=== PATIENT | female | born 1975 | race Caucasian/White ===

== ENCOUNTER 2017-05-07 02:25 | Emergency (ER) | payer BC ==
[~2017-05-07] VITALS: Ht 157.5 cm; Wt 66.0 kg
[~2017-05-07 02:25] MED LIST: ALPR0.5T PO; AUG875 PO; AZIT250T94 PO; BENZ100C70 PO; D-ME118S6 PO
[2017-05-07 02:30] VITALS: Ht 157.5 cm; Wt 66.0 kg
[2017-05-07] MEDS ORDERED: ALBUTEROL 0.083% (NEB) 2.5 MG/3 ML AMP NEB STA (03:15)
[2017-05-07] MEDS ORDERED: IPRATROPIUM (NEB) 0.5 MG/2.5 ML AMP NEB STA (03:15)
--- NOTE | 2017-05-07 03:43 | ERD ---
ER Documentation Chief Complaint Date/Time DATE: 05/07/17 TIME: 03:41 Chief Complaint productive cough X4 days, sore throat HPI 41-year-old female presents here in emergency department for complaints of cough with whitish phlegm and wheezing for 4 days. Patient has been having throat discomfort from coughing a lot, blood tinged sputum at times. Patient does not have any fever or chills. Patient is complaining of throat discomfort burning pain 4/10 scale, is coughing. Patient took [id number] medication for cough with only mild relief. ROS All systems reviewed and are negative except as per history of present illness. Medications Home Meds Active Scripts Alprazolam* (Xanax*) 0.5 Mg Tab, 0.5 MG PO Q8H Y for ANXIETY, #12 TAB Prov:ELIZA GARCIA MD 12/26/15 Benzonatate* (Tessalon Perle*) 100 Mg Capsule, 100 MG PO Q8H Y for COUGH, #20 CAP Prov:DOMINGO VEGA PA-C 11/25/15 Azithromycin* (Zithromax*) 250 Mg Tablet, 250 MG PO .ZPACK DIRECTED, #6 TAB TAKE 500 MG (2 TABS) THE FIRST DAY THEN 250 MG (1 TAB) DAYS 2-5 Prov:DOMINGO VEGA PA-C 11/25/15 Amoxicillin-Clavulanate K* (Augmentin*) 875 Mg Tab, 875 MG PO BID for 7 Days, TAB Prov:DENISE RAMAN MD 07/22/15 Dextromethorphan Hb-Promethazine Hcl (Promethazine DM Syrup) 180 Ml Syrup, 5 ML PO Q6H Y for COUGH, #4 OZ Prov:GUY WALLS 07/16/15 Allergies Allergies: Coded Allergies: No Known Drug Allergy (Verified Allergy, Mild, 03/06/11) PMhx/Soc History of Surgery: No Anesthesia Reaction: No Hx Neurological Disorder: No Hx Respiratory Disorders: No Hx Cardiac Disorders: No Hx Psychiatric Problems: No Hx Miscellaneous Medical Probl: Yes (hx of pneumonia) Hx Alcohol Use: No Hx Substance Use: No Hx Tobacco Use: No Smoking Status: Never smoker FmHx Family History: No coronary disease, No diabetes, No other Physical Exam Vitals Vital Signs Date Time Temp Pulse Resp B/P Pulse Ox O2 Delivery O2 Flow Rate FiO2 05/07/17 03:50 82 20 98 21 05/07/17 02:30 98.4 87 18 124/71 97 Physical Exam GENERAL: The patient is well developed and appropriate for usual state of health, in no apparent distress. CHEST: With diminished breath sounds but clear. There are no rales, crackles or rhonchi. HEART: Regular rate and rhythm. No murmurs, clicks, rubs or gallops. No S3 or S4. ABDOMEN: Soft, nontender and nondistended. Good bowel sounds. No rebound or guarding. No gross peritonitis. No gross organomegaly or masses. No Castañeda sign or McBurney point tenderness. BACK: No midline or flank tenderness. EXTREMITIES: Equal pulses bilaterally. There is no peripheral clubbing, cyanosis or edema. No focal swelling or erythema. Full range of motion. Grossly neurovascularly intact. NEURO: Alert and oriented. Cranial nerves 2-12 intact. Motor strength in all 4 extremities with 5/5 strength. Sensation grossly intact. Normal speech and gait. SKIN: There is no apparent rash or petechia. The skin is warm and dry. HEMATOLOGIC AND LYMPHATIC: There is no evidence of excessive bruising or lymphedema. No gross cervical, axillary, or inguinal lymphadenopathy. Results 24 hrs Current Medications Medications (Trade) Dose Ordered Sig/Sahil Route PRN Reason Start Time Stop Time Status Last Admin Dose Admin Albuterol (Proventil 0.083% (Neb)) 5 mg ONCE STAT NEB 05/07/17 03:15 05/07/17 03:16 DC 05/07/17 03:38 Ipratropium Adamant (Atrovent 0.02% (Neb)) 0.5 mg ONCE STAT NEB 05/07/17 03:15 05/07/17 03:16 DC 05/07/17 03:38 Breathing treatment of albuterol and Atrovent was given here in emergency department, after treatment, patient's lungs sounds are clear and patient's oxygenation is better. Patient verbalized feeling much better. PROCEDURE: Chest. CLINICAL INDICATION: Chest pain. TECHNIQUE: Single frontal view of the chest was obtained. COMPARISON: 12/26/2015. FINDINGS: The cardiac silhouette is within normal limits. The aortic arch is unremarkable. There is no focal consolidation, vascular congestion or pleural effusion. There is no pneumothorax. IMPRESSION: No evidence for active cardiopulmonary disease. Signed By: Noel Mcelroy M.D 05/07/2017 5:00:44 AM Procedures/MDM Medical Decision Making: Patient symptoms are most likely consistent with acute bronchitis, which viral in origin. There is low suspicion for Pneumonia at this time since patients lungs sounds are clear, patient O2 saturation is normal and patient doesnt show any respiratory distress. Patients chest xray doesnt show infiltrates or any other cardiopulmonary emergencies at this time. There is low suspicion for other cardiopulmonary emergencies at this time such as CHF, Pulmonary Embolism, Pneumothorax, Aortic Aneurysm or any other cardiopulmonary emergencies at this time. There is low suspicion for sepsis. Patient appears well and is hemodynamically stable. She does not have any fever. Disposition: Home. Condition: Stable Prescriptions: Guaifenesin with codeine Zyrtec ibuprofen albuterol Instructions: Patient is advised to take medications as prescribed. Patient is advised to rest. Patient advised to increase fluid intake, do humidifier at home and if possible, do salt water gargles. Patient is advised that if symptoms are worse, shortness of breath, uncontrolled fever, stridor, vomiting, worst signs and symptoms to return to emergency department immediately. Otherwise, patient is advised to follow up with primary doctor in 5-7 days. Departure Diagnosis: Primary Impression: Acute bronchitis Bronchitis organism: unspecified organism Qualified Code: J20.9 - Acute bronchitis, unspecified organism Condition: Stable Patient Instructions: Bronchitis With Wheezing (Adult) Additional Instructions: Patient is advised to take medications as prescribed. Patient is advised to rest. Patient advised to increase fluid intake, do humidifier at home and if possible, do salt water gargles. Patient is advised that if symptoms are worse, shortness of breath, uncontrolled fever, stridor, vomiting, worst signs and symptoms to return to emergency department immediately. Otherwise, patient is advised to follow up with primary doctor in 5-7 days. MORRIS VEGA NP May 07, 2017 03:43
--- NOTE | 2017-05-07 05:01 | RADRPT ---
PROCEDURE: Chest. CLINICAL INDICATION: Chest pain. TECHNIQUE: Single frontal view of the chest was obtained. COMPARISON: 12/26/2015. FINDINGS: The cardiac silhouette is within normal limits. The aortic arch is unremarkable. There is no focal consolidation, vascular congestion or pleural effusion. There is no pneumothorax. IMPRESSION: No evidence for active cardiopulmonary disease. .Noel Mcelroy MD, Date Time Electronically viewed and signed by .Noel Mcelroy MD, on 05/07/2017 05:00 .T/
[2017-05-07] MEDS ORDERED: GUAI473L22 PO (05:39)
[2017-05-07] MEDS ORDERED: ALBU8.5H3 INH (05:39)
[2017-05-07] MEDS ORDERED: IBUP400T22 PO (05:39)
[2017-05-07] MEDS ORDERED: CETI10CA PO (05:39)
[2017-05-07 06:02] VITALS: BP 105/66; PULSE 95; RESP 16
== END 2017-05-07 06:03 | disposition home or self-care (01) ==
LOC: FTE 02:25
DX: J20.9 Acute bronchitis, unspecified (principal)
CPT/HCPCS: 71010; 94664; 99283; Z7610

== ENCOUNTER 2019-05-26 02:34 | Emergency (ER) | payer BC ==
[~2019-05-26] VITALS: Ht 157.5 cm; Wt 68.0 kg
[~2019-05-26 02:34] MED LIST changes: +ALBU8.5H8 INH; +AZIT250T PO; -AZIT250T94 PO; +BENZ-6 PO; -BENZ100C70 PO; +CETI10CA PO; +GUAI473L22 PO; +IBUP-1561 PO; +NITR-58 PO; +OMEP20CA16 PO
[2019-05-26 02:39] VITALS: Ht 157.5 cm; Wt 68.0 kg
[2019-05-26 05:30] VITALS: BP 104/72; PULSE 74; RESP 16
== END 2019-05-26 05:30 | disposition home or self-care (01) ==
LOC: E/R 02:34
DX: R07.9 Chest pain, unspecified (principal)
CPT/HCPCS: 36415; 71045; 80053; 81001; 83690; 84484; 84703; 85025; 93005; 96374; 96375; J1885; J2405; Z7502; Z7610

== ENCOUNTER → 2019-05-30 | Emergency (ER) | payer BC ==
[~2019-05-30] VITALS: Ht 157.5 cm; Wt 68.2 kg
[~2019-05-30] MED LIST changes: +FAMOTIDINE 20 MG TAB PO ONE
[2019-05-30 17:25] VITALS: BP 118/57; PULSE 87; RESP 20; Ht 157.5 cm; Wt 68.2 kg
== END | disposition home or self-care (01) ==
LOC: FTE 17:19
DX: K29.00 Acute gastritis without bleeding (principal); N39.0 Urinary tract infection, site not specified
CPT/HCPCS: 99283; Z7610; 93005